=== PATIENT | male | born 1965 | race Hispanic/Latino ===

== ENCOUNTER 2019-05-21 05:13 | Emergency (ER) | payer OTHER ==
[2019-05-21] MEDS ORDERED: SODIUM CHLORIDE 0.9% 1000 ML 1,000 ML IV ONE (05:35)
[2019-05-21] MEDS ORDERED: KETOROLAC 30 MG/1 ML INJ IV ONE (05:35)
[2019-05-21] MEDS ORDERED: ONDANSETRON 4 MG/2 ML INJ IV ONE (05:35)
[2019-05-21] MEDS ORDERED: MORPHINE 4 MG/1 ML INJ IV ONE (05:35)
--- NOTE | 2019-05-21 06:24 | Cat Scan Report ---
CT ABDOMEN AND PELVIS WITHOUT CONTRAST HISTORY: Right flank pain. COMPARISON: None TECHNIQUE: Routine abdominal and pelvic CT exam performed without contrast. Lack of intravenous cont rast limits evaluation of the vascular and solid organs.. All CT scans at this location are performed using CT dose reduction for ALARA by means of automated exposure control. FINDINGS: CT ABDOMEN: Lung Bases: There is a 3 mm nodule in the lateral right middle lobe. Liver: Decreased attenuation consistent with hepatic steatosis. Biliary: No significant abnormality. Spleen: No significant abnormality. Unenlarged. Pancreas: No significant abnormality. Adrenals: No significant abnormality. Kidneys: There is mild right hydroureter nephrosis and hydroureter due to a 4 mm stone in the right U VJ. There are multiple small 2 to 3 mm stones in both kidneys as well without left-sided hydronephros is. Lymphatics: No lymphadenopathy. Vasculature: No significant abnormality. Bowel/Peritoneum: Nonobstructive bowel pattern. Diverticulosis without mesocolonic fat stranding. No free air. No free fluid. Normal appendix. CT PELVIC: : No significant abnormality. Lymphatics: No lymphadenopathy. Osseous Structures: No aggressive appearing osseous lesions. Additional Findings: None IMPRESSION: 1. Mild right hydroureteronephrosis due to a 4 mm right UVJ stone. 2. Additional small bilateral nonobstructing intrarenal stones. 3. Hepatic steatosis. 4. Incidental pulmonary nodule measuring 3 mm located in the right middle lobe. See below for follow- up recommendation based on Fleischner criteria. Nodule size* 4 mm Low-Risk Patient: no follow-up needed High-Risk Patient: follow-up at 12 months; if unchanged, no further follow-up Low-Risk Patient - minimal or absent history of smoking and of other known risk factors. High-Risk Patient - history of smoking or of other known risk factors. * Average of length and width The risk of malignancy in this category (<1%) is substantially less than that in a baseline CT scan of an asymptomatic smoker. Nonsolid (ground-glass) or partly solid nodules may require longer follow-up to exclude indolent Tammy nocarcinoma. Signer Name: Geronimo Muñoz MD Signed: 05/21/2019 6:20 AM Workstation Name: [email or web address]
[2019-05-21 06:25] LABS: Basophils # (Auto) 0.1 K/mm3 (0.0-0.1); Basophils % (Auto) 0.9 % (0.0-1.8); Eosinophils # (Auto) 0.4 K/mm3 (0.0-0.4); Eosinophils % (Auto) 4.7 % (0.0-4.3); Hemoglobin 14.9 gm/dl (11.8-15.2); Lymphocytes # (Auto) 2.4 K/mm3 (1.2-5.4); Lymphocytes % (Auto) 31.5 % (13.4-35.0); Mean Corpuscular HGB Conc 34 % (32-34); Mean Corpuscular Volume 84 fl (84-94); Monocytes # (Auto) 0.5 K/mm3 (0.0-0.8); Monocytes % (Auto) 6.8 % (0.0-7.3); Platelet Count 236 K/mm3 (140-440); Red Blood Count 5.24 M/mm3 (3.65-5.03); Red Cell Distribution Width 13.3 % (13.2-15.2)
[2019-05-21 06:40] LABS: BUN/Creatinine Ratio 12; Blood Urea Nitrogen 13 mg/dL (9-20); Hemolysis Index 10
[2019-05-21] MEDS ORDERED: HYDROmorphone 1 MG/1 ML INJ IV ONE (06:56)
--- NOTE | 2019-05-21 07:06 | Emergency Department Report ---
HPI - General Chief Complaint: Abdominal Pain Time Seen by Provider: 05/21/19 06:07 - HPI HPI: 54-year-old male presents to the emergency department with a complaint of right-sided flank pain has been going on since 3 AM. Patient does have a hi story of kidney stones. It is a sharp pain and sometimes spasmodic. The patient says there is no position in which he can get comfortable. Denies any hematuria. Denies any fever, nausea, vomiting. He has not taken anything for her symptoms prior to arrival today. He presents with extremely elevated blood pressure but says he does not have any history of hypertension but his blood pressure goes up when he has a kidney stone or significant pain. ED Past Medical Hx - Past Medical History Previous Medical History?: Yes Additional medical history: h/o kidney stones. screws to R foot - Social History Smoking Status: Never Smoker Substance Use Type: None - Medications Home Medications: Home Medications Medication Instructions Recorded Confirmed Last Taken Type Sulfamethoxazole/Trimethoprim 1 each PO BID #10 tablet 05/21/19 Unknown Rx [Bactrim DS TAB] ED Review of Systems ROS: Stated complaint: KIDNEY STONE Other details as noted in HPI Comment: All other systems reviewed and negative Constitutional: denies: chills, fever Respiratory: denies: cough, shortness of breath Cardiovascular: denies: chest pain, palpitations Gastrointestinal: abdominal pain (right flank pain). denies: vomiting Genitourinary: denies: dysuria, discharge Musculoskeletal: denies: joint swelling, arthralgia Neurological: denies: headache, weakness Physical Exam - Physical Exam Vital Signs: Vital Signs 05/21/19 05/21/19 05:15 05:30 Temperature 97.5 F L Pulse Rate 77 Respiratory 18 16 Rate Blood Pressure 230/122 O2 Sat by Pulse 95 98 Oximetry Physical Exam: GENERAL: The patient is well-developed well-nourished. HENT: Normocephalic. Atraumatic. Patient has moist mucous membranes. EYES: Extraocular motions are intact. NECK: Supple. Trachea is midline. CHEST/LUNGS: Clear to auscultation. There is no respiratory distress noted. HEART/CARDIOVASCULAR: Regular. There is no tachycardia. There is no murmur. ABDOMEN: Abdomen is soft, nontender. Unable to reproduce flank pain to palpation. Patient has normal bowel sounds. There is no abdominal distention. SKIN: Skin is warm and dry. NEURO: The patient is awake, alert, and oriented. The patient is cooperative. The patient has no focal neurologic deficits. Normal speech. MUSCULOSKELETAL: There is no tenderness or deformity. There is no evidence of acute injury. ED Course Vital Signs 05/21/19 05/21/19 05:15 05:30 Temperature 97.5 F L Pulse Rate 77 Respiratory 18 16 Rate Blood Pressure 230/122 O2 Sat by Pulse 95 98 Oximetry ED Medical Decision Making - Lab Data Result diagrams: 05/21/19 06:01 05/21/19 06:01 - Radiology Data Radiology results: report reviewed CT ABDOMEN AND PELVIS WITHOUT CONTRAST HISTORY: Right flank pain. COMPARISON: None TECHNIQUE: Routine abdominal and pelvic CT exam performed without contrast. Lack of intravenous contrast limits evaluation of the vascular and solid organs.. All CT scans at this location are performed using CT dose reduction for ALARA by means of automated exposure control. FINDINGS: CT ABDOMEN: Lung Bases: There is a 3 mm nodule in the lateral right middle lobe. Liver: Decreased attenuation consistent with hepatic steatosis. Biliary: No significant abnormality. Spleen: No significant abnormality. Unenlarged. Pancreas: No significant abnormality. Adrenals: No significant abnormality. Kidneys: There is mild right hydroureter nephrosis and hydroureter due to a 4 mm stone in the right UVJ. There are multiple small 2 to 3 mm stones in both kidneys as well without left-sided hydronephrosis. Lymphatics: No lymphadenopathy. Vasculature: No significant abnormality. Bowel/Peritoneum: Nonobstructive bowel pattern. Diverticulosis without mesocolonic fat stranding. No free air. No free fluid. Normal appendix. CT PELVIC: : No significant abnormality. Lymphatics: No lymphadenopathy. Osseous Structures: No aggressive appearing osseous lesions. Additional Findings: None IMPRESSION: 1. Mild right hydroureteronephrosis due to a 4 mm right UVJ stone. 2. Additional small bilateral nonobstructing intrarenal stones. 3. Hepatic steatosis. 4. Incidental pulmonary nodule measuring 3 mm located in the right middle lobe. See below for follow-up recommendation based on Fleischner criteria. - Medical Decision Making Patient presents with some right flank pain since the middle of last night. He has a history of kidney stones and was found to have a 4 mm stone at the UVJ. He presents with very elevated blood pressure without a history of hypertension but says that this occurs when he is in great discomfort. He was given some anti-inflammatories, nausea medication, pain medication and eventually 1 dose of hydralazine. His pain improved and the blood pressure came down to a more reasonable level. With this size stone, the patient has a very good chance ( > 95%) to pass the stone without any intervention. He has both anti-inflammatory and pain medications at home from a previous orthopedic injury. The patient was given a prescription for some antibiotics. He was also given a referral for urology. He was instructed to return to the emergency Department with any worsening of his symptoms or any acute distress. - Differential Diagnosis nephrolithiasis, pyelonephritis, UTI, colitis Critical Care Time: No Critical care attestation.: If time is entered above; I have spent that time in minutes in the direct care of this critically ill patient, excluding procedure time. ED Disposition Clinical Impression: Nephrolithiasis, Ureterolithiasis, Flank pain Disposition: TO HOME OR SELFCARE Is pt being admited?: No Condition: Stable Instructions: Kidney Stones (ED), Renal Colic (ED), How to Strain Your Urine (ED) Additional Instructions: Please follow-up with a urologist and your primary care physician. I am giving you a referral for a local urologist, Dr. Montesinos. Return to the emergency D epartment with any worsening of your symptoms including any increased pain, nausea and vomiting, development of fever, inability to urinate, or with any acute distress. Prescriptions: Sulfamethoxazole/Trimethoprim [Bactrim DS TAB] 1 each PO BID #10 tablet Referrals: REINA MONTESINOS MD [Staff Physician] - 2-3 Days PRIMARY CAREMD [Primary Care Provider] - 2-3 Days Time of Disposition: 09:00
[2019-05-21] MEDS ORDERED: TAMSULOSIN 0.4 MG CAP PO ONE (08:00)
[2019-05-21 08:02] LABS: Bilirubin,Urine NEG (Negative); Blood,Urine NEG (Negative); Color,Urine Yellow (Yellow); Mucus,Urine FEW /HPF; Protein,Urine <15 mg/dL mg/dL (Negative); Urobilinogen,Urine < 2.0 mg/dL (<2.0)
[2019-05-21] MEDS ORDERED: hydrALAZINE 20 MG/1 ML INJ IV ONE (08:28)
[2019-05-21 09:45] VITALS: BP 154/89
== END 2019-05-21 09:46 | disposition home or self-care (01) ==
LOC: ED 05:13
DX: N20.1 Calculus of ureter (principal); N20.0 Calculus of kidney; Z98.890 Other specified postprocedural states; Z79.899 Other long term (current) drug therapy; Z88.0 Allergy status to penicillin
CPT/HCPCS: 36415; 74176; 80048; 81001; 85025; 96374; 96375; 99284; J0360; J1170; J1885; J2270; J2405; J7030; 96361